=== PATIENT | female | born 2000 | race Two or more races ===

== ENCOUNTER 2024-08-23 22:40 | Emergency (ER) | payer MEDICAID, SELFPAY ==
[2024-08-23 22:41] VITALS: BMI 31.6
[2024-08-23 23:05] VITALS: BP 134/90; PULSE 86; RESP 16; TEMP 37; O2SAT 100
--- NOTE | 2024-08-23 23:30 | PD.EDRME ---
Rapid Medical Screening Exam RME Arrival date/time: 08/23/24 22:40 Chief Complaint: Chest Pain Time Seen by Provider: 08/23/24 22:45 Vital signs: Vital Signs Temperature 98.6 F 08/23/24 23:05 Pulse Rate 86 08/23/24 23:05 Respiratory Rate 16 08/23/24 23:05 Blood Pressure 134/90 H 08/23/24 23:05 Pulse Oximetry (%) 100 08/23/24 23:05 Oxygen Delivery Method Room Air 08/23/24 23:05 Vital signs reviewed by provider: Yes RME Narrative: 23-year-old female presents with a 1 day history of left anterior chest pain that radiates to her left shoulder and arm. She has had this pain before and was seen by a registered nurse behavioral health. She was told she had a heart murmur but no actual diagnosis. She states today the pain has been coming and going. It comes on at rest it is described as a pressure, she describes it as an 8/10 at its worst and currently 7/10. It lasts a few minutes and then goes away on its own. There are no exacerbating or alleviating factors. She has no associated symptoms of shortness of breath, nausea or vomiting, abdominal pain, lightheadedness. I have greeted and performed a focused initial assessment of this patient. A comprehensive ED assessment and evaluation of the patient, analysis of all test results, and completion of the medical decision making process will be conducted by additional ED providers. EKG and chest x-ray ordered and pending.
--- NOTE | 2024-08-23 23:33 | EKG_ITS ---
[facility] Test Date: 2024-08-23 Pat Name: NAIMA FISHER Department: Room: - Gender: Female Creative Strategist: : [id number] Requested By: Andria Lopez Order Number: [id number] Reading MD: Andria Lopez Measurements Intervals [place] Rate: 81 P: 50 HI: 153 QRS: 60 QRSD: 93 T: 56 QT: 389 QTc: 453 Interpretive Statements SINUS RHYTHM No previous ECG available for comparison /store/S0/[id number].pdf
--- NOTE | 2024-08-23 23:33 | XR_ITS ---
Examination: PA lateral chest 2 views Technique: Upright PA lateral chest 2 views Exam date and time: August 23, 2024 1143 hrs. Comparison July 17, 2021 Indications: Left anterior chest pain today. Findings: Normal heart size Lungs are clear. The osseous structures are intact Impression: No active disease
[2024-08-24] MEDS: ACETAMINOPHEN w/COD 300-30 TABLET 2 TAB PO (00:32)
[2024-08-24 00:57] LABS: Basophils % (Auto) 0 % (0-2.5); Eosinophils # (Auto) 0.3 Thou/mm3 (0.0-0.5); Eosinophils % (Auto) 3 % (0-10); Hematocrit 39.1 % (36.0-46.0); Hemoglobin 12.9 g/dL (12.0-16.0); Immature Granulocytes % (Auto) 0 % (0-0); Immature Granulocytes Auto 0.03 Thou/mm3 (0.00-0.00); Lymphocytes # (Auto) 2.7 Thou/mm3 (1.0-4.8); Lymphocytes % (Auto) 23 % (10-50); Mean Corpuscular Hemoglobin 26.9 pg (25.0-35.0); Mean Corpuscular Volume 82 fL (80-100); Monocytes # (Auto) 0.9 Thou/mm3 (0.0-0.8); Monocytes % (Auto) 8 % (0-12); Neutrophils # (Auto) 7.5 Thou/mm3 (1.8-7.7); Neutrophils % (Auto) 65 % (37-80); Nucleated Red Blood Cell % 0 /100 WBC (0); Platelet Count 271 Thou/mm3 (140-440); RDW Standard Deviation 43.6 fL (36.4-46.3); White Blood Count 11.5 Thou/mm3 (3.6-11.0)
[2024-08-24 01:11] LABS: D-Dimer < 250 ng/mL (<600)
[2024-08-24 01:29] LABS: B-Type Natriuretic Peptide < 20 pg/mL (0-100)
[2024-08-24 01:48] LABS: Albumin, Serum 4.5 gm/dL (3.5-5.0); Albumin/Globulin Ratio 1.6 (1.2-2.2); Alkaline Phosphatase 47 U/L (46-116); Anion Gap 6 (7-16); Aspartate Amino Transferase 14 U/L (0-34); BUN/Creatinine Ratio 17 Ratio (12-20); Bilirubin,Total 1.8 mg/dL (0.3-1.2); Blood Urea Nitrogen 12 mg/dL (9-23); Calcium 9.4 mg/dL (8.3-10.6); Calcium (Corrected) 9.4 mg/dL (8.5-10.1); Carbon Dioxide 26.6 mMol/L (20.0-31.0); Chloride 106 mMol/L (98-107); Creatinine (Component) 0.7 mg/dL (0.6-1.3); Estimated Creatinine Clearance 121.3 mL/min (>60); Globulin 2.8 gm/dL (2.3-3.5); Glucose 88 mg/dL (74-106); Magnesium 1.8 mg/dL (1.6-2.6); Osmolality,Calculated 276 (275-295); Potassium 3.8 mMol/L (3.4-5.1); Sodium 139 mMol/L (136-145); Total Protein 7.3 gm/dL (5.7-8.2); Troponin I < 0.002 ng/mL (0.0-0.045); eGFR > 60 See Note
[2024-08-24 01:51] LABS: Free T4 (Free Thyroxine) 1.17 ng/dL (0.89-1.76); Thyroid Stimulating Hormone 0.97 uIU/mL (0.55-4.78)
[2024-08-24 01:57] LABS: Alanine Aminotransferase < 7 U/L (10-49)
--- NOTE | 2024-08-24 02:12 | PD.EDCHEST ---
ED Chest Pain RME/HPI General Chief Complaint: Chest Pain Stated Complaint: CHEST PAIN Time Seen by Provider: 08/23/24 22:45 Arrival date/time: 08/23/24 22:40 RME / HPI RME / HPI narrative: 23-year-old female presents with a 1 day history of left anterior chest pain that radiates to her left shoulder and arm. She has had this pain before and was seen by a watch manufacturing supervisor. She was told she had a heart murmur but no actual diagnosis. She states today the pain has been coming and going. It comes on at rest it is described as a pressure, she describes it as an 8/10 at its worst and currently 7/10. It lasts a few minutes and then goes away on its own. There are no exacerbating or alleviating factors. She has no associated symptoms of shortness of breath, nausea or vomiting, abdominal pain, lightheadedness. I have greeted and performed a focused initial assessment of this patient. A comprehensive ED assessment and evaluation of the patient, analysis of all test results, and completion of the medical decision making process will be conducted by additional ED providers. EKG and chest x-ray ordered and pending. This section includes all my notes and documentations, including HPI, PE, and ED course. Randy Candelario MD HPI: 23-year-old female presents with a 1 day history of left anterior chest pain that radiates to her left shoulder and arm. She has had this pain before and was seen by a watch manufacturing supervisor. She was told she had a heart murmur but no actual diagnosis. She states today the pain has been coming and going. It comes on at rest it is described as a pressure, she describes it as an 8/10 at its worst and currently 7/10. It lasts a few minutes and then goes away on its own. There are no exacerbating or alleviating factors. She has no associated symptoms of shortness of breath, nausea or vomiting, abdominal pain, lightheadedness. ROS: All negative except as documented in HPI. Physical Exam: General: Alert and oriented. Appears anxious. Eyes: Conjunctivae and lids clear. ENT: No nasal congestion. Neck: Supple. Heart: RRR. Lungs: No respiratory distress. Good air movement. No rhonchi, wheezing, rales. Chest: Palpation of left sided anterior chest induces tenderness. Abdomen: Soft and nontender. Back: No CVA tenderness. Skin: Warm and dry. Neuro: Alert and oriented X 3. I reviewed all diagnostic test results. My interpretation of the EKG is sinus rhythm with no ST-T changes. My interpretation of the chest x-ray is NAD. Blood tests unremarkable. At this point, diagnoses include musculoskeletal chest pain or chest pain due to anxiety. Treatment here included two Tylenol #3. Significant improvement noted. Prescribed Xanax as a trial and recommended more outpatient cardiac workup. Based on my best medical judgment, made decision no further evaluation or treatment indicated at this time. Patient understands and agrees to the discharge instructions customized and printed, see below. Discharge instructions from Dr. Candelario: 1. After extensive evaluation, there is no life-threatening condition.? Such as heart attack or pulmonary embolism (blood clots in your lungs) or pneumothorax (collapsed lung). 2. Your symptoms may be due to underlying stress or anxiety or nerves.? This is fairly common. 3. Take Xanax as needed.? Whether this helps or not will be valuable information to your private doctors. 4. See a private doctor on 08/25/2024. To make sure there is no serious underlying heart condition, ask to help you get more tests for your heart that cannot be done here in the ER.? Such as Holter Monitor (cardiac monitoring at home from a day to even a month), heart stress test (on treadmill or with medication), echocardiogram (imaging of your heart structures), heart catherization (checking for blockages in your heart arteries), and a referral to see a Manufacturing Engineer. 5. Seek immediate medical care with worsening or with any concerns.?? Randy Candelario MD Related Data Home Medications ?Medication ?Instructions ?Recorded ?Confirmed vit no.95-ferrous 1 tab PO QDAY 11/18/20 07/01/23 fumarate 28 mg-folic acid 800 mcg tablet () ferrous gluconate 324 mg (38 mg 324 mg PO DAILY 06/29/23 07/01/23 iron) tablet Previous Rx's ?Medication ?Instructions ?Recorded docusate sodium 100 mg capsule 100 mg PO BID #60 caps 07/16/23 (Colace) ibuprofen 800 mg tablet 800 mg PO Q6H PRN pain #120 tabs 07/16/23 lanolin 50 % topical ointment 1 applic topical TID PRN skin 07/16/23 irritation #15 tubes alprazolam 0.5 mg tablet (Xanax) 0.5 mg PO BID PRN anxiety #20 tabs 08/24/24 Allergies Allergy/AdvReac Type Severity Reaction Status Date / Time Sulfa (Sulfonamide Allergy Severe Rash Verified 07/14/23 23:55 Antibiotics) Course Quality Measures none Orders Category Date Time Status EKG (ED ONLY) *Do not use* NOW Care 08/23/24 23:34 Completed EKG (ED Only) Stat Exams 08/23/24 23:33 Draft XR chest 2V Stat Exams 08/23/24 23:33 Completed BNP [B-Type Natriuretic Peptide] Stat Lab 08/24/24 00:15 Completed CBC Stat Lab 08/24/24 00:15 Completed CMP [Comprehensive Metabolic Panel] Stat Lab 08/24/24 00:15 Completed D-Dimer Stat Lab 08/24/24 00:15 Completed Free T4 (Free Thyroxine) Stat Lab 08/24/24 00:15 Completed Magnesium Stat Lab 08/24/24 00:15 Completed TSH [Thyroid Stimulating Hormone] Stat Lab 08/24/24 00:15 Completed Troponin I Stat Lab 08/24/24 00:15 Completed ACETAMINOPHEN w/COD 300-30 [Tylenol w/Cod #3] Med 08/24/24 00:13 Discontinued 2 tab PO X1 ONE Vital Signs Vital signs: Vital Signs Temperature 98.6 F 08/23/24 23:05 Pulse Rate 86 08/23/24 23:05 Respiratory Rate 16 08/23/24 23:05 Blood Pressure 134/90 H 08/23/24 23:05 Pulse Oximetry (%) 100 08/23/24 23:05 Oxygen Delivery Method Room Air 08/23/24 23:05 Chest Pain Patient data External records reviewed:: [facility] previous records Clinical information provided by:: patient Social determinants that could affect healthcare access:: none Patient has the following chronic illnesses:: heart murmur How is presenting disease/condition affected by chronic disease/condition?: uneffected by Evaluation data The following diagnostics were reviewed and interpreted by me:: lab results, radiology exam(s) and EKG tracing(s) Lab and/or radiology exams considered but not ordered:: none Interpretation Summary: musculoskeletal chest pain or chest pain due to anxiety Medications / Prescriptions Medications or Prescriptions considered but not ordered:: none Medication administrations:: Medication Administration History Discontinued Medications Acetaminophen/Codeine Phosphate (Acetaminophen W/Cod 300-30 Tablet) 2 tab PO X1 ONE Stop: 08/24/24 00:14 Last Admin: 08/24/24 00:32 Dose: 2 tab Documented By: STEWART Tylenol #3 Consultations Consultation(s) initiated? (list below): No Diagnosis Chest Pain Differential Diagnosis: pneumothorax, stable angina, unstable angina pectoris, atypical chest pain, st elevation myocardial infarction and costochondritis Most likely diagnosis given after review of the tests above:: musculoskeletal chest pain or chest pain due to anxiety Admission Indicated Admission indicated?: not indicated Explain why admission is indicated or not indicated:: No indication for admission. Admission Request Was there a request for admission?: No Disposition Plan Disposition Plan: Discharge Discharge Attestation Discharge Attestation: The patient and all family members were given an opportunity to ask questions and understood the discharge instructions. Discharge instructions specifically effects, indications for sooner follow up or return to the emergency department, and the expected course of current diagnosis. Patient condition: Stable Discharge Plan Plan Patient Disposition: HOME (Self Care) Prescriptions/Referrals Prescriptions/Med Rec: New alprazolam [Xanax] 0.5 mg tablet 0.5 mg PO BID PRN (Reason: anxiety) Qty: 20 0RF No Action PNV cmb#95-ferrous fumarate-FA [] 28 mg iron- 800 mcg tablet 1 tab PO QDAY ferrous gluconate 324 mg (38 mg iron) tablet 324 mg PO DAILY Patient Comments: TAKE 1 TABLET BY MOUTH TWICE DAILY ibuprofen 800 mg tablet 800 mg PO Q6H MDD 4 PRN (Reason: pain) Qty: 120 0RF docusate sodium [Colace] 100 mg capsule 100 mg PO BID Qty: 60 0RF lanolin 50 % ointment 1 applic topical TID PRN (Reason: skin irritation) Qty: 15 0RF Referrals: Bin Noguera MD [Primary Care Provider] - In 1 week Problem List Clinical Impression: Chest pain Patient/Caregiver Discharge Instructions Discharge Activity: activity as tolerated Education Materials: ED Anxiety Reaction, ED Chest Pain, Uncertain Cause, ED Panic Attack Additional Instructions: Discharge instructions from Dr. Candelario: 1. After extensive evaluation, there is no life-threatening condition.? Such as heart attack or pulmonary embolism (blood clots in your lungs) or pneumothorax (collapsed lung). 2. Your symptoms may be due to underlying stress or anxiety or nerves.? This is fairly common. 3. Take Xanax as needed.? Whether this helps or not will be valuable information to your private doctors. 4. See a private doctor on 08/25/2024. To make sure there is no serious underlying heart condition, ask to help you get more tests for your heart that cannot be done here in the ER.? Such as Holter Monitor (cardiac monitoring at home from a day to even a month), heart stress test (on treadmill or with medication), echocardiogram (imaging of your heart structures), heart catherization (checking for blockages in your heart arteries), and a referral to see a Manufacturing Engineer. 5. Seek immediate medical care with worsening or with any concerns.?? Print Language: Chinese Stand Alone Forms: Emma Award Info., Patient Portal Info Letter
[2024-08-24 02:16] VITALS: RESP 16
== END 2024-08-24 02:17 | disposition home or self-care (01) ==
PROVIDERS: Emergency Provider Emergency Medicine; PCP Family Medicine
DX: R07.9 Chest pain, unspecified (principal)
CPT/HCPCS: 36415; 71046; 80053; 83735; 83880; 84439; 84443; 84484; 85025; 85379; 93005; 99283; A9270

== ENCOUNTER 2025-02-02 10:27 | Emergency (ER) | payer MEDICAID, SELFPAY ==
--- NOTE | 2025-02-02 10:53 | XR_ITS ---
Examination: Complete OB ultrasound, less than 14 weeks, transabdominal Date and time of exam: February 02, 2025, 1143 hours INDICATIONS: Lower back pain pelvic pain onset today Technique: Obstetrical ultrasound images less than 14 weeks performed via transabdominal imaging Findings: A normal shaped single intrauterine gestation is present in the uterus. CRL 3.8 cm corresponds to 10 weeks 5 day gestational age Cardiac motion 160 BPM Ultrasonographic survey of visible and placental structures unremarkable. Amniotic fluid volume appears appropriate for this estimated gestational age. Right ovary 4.7 cm arterial flow 13 mm corpus luteum cyst Left ovary 4.0 cm arterial flow IMPRESSION: Viable intrauterine gestation 10 weeks 5 days, no subchorionic hemorrhage.
--- NOTE | 2025-02-02 10:53 | PD.EDBACK ---
ED Back Injury Pain RME/HPI General Chief Complaint: Abdominal Pain Stated Complaint: ABD/BACK PAIN 8/10, PREG 8 WKS Time Seen by Provider: 02/02/25 10:54 Source: patient Arrival date/time: 02/02/25 10:27 24-year-old female with no known medical history presents to the emergency room with a chief complaint of lower lumbar back pain and bilateral lower abdominal pain x 1 day. Patient is currently 8 weeks . Mode of arrival: ambulatory Limitations: no limitations Related Data Home Medications ?Medication ?Instructions ?Recorded ?Confirmed vit no.95-ferrous 1 tab PO QDAY 11/18/20 07/01/23 fumarate 28 mg-folic acid 800 mcg tablet () ferrous gluconate 324 mg (38 mg 324 mg PO DAILY 06/29/23 07/01/23 iron) tablet Previous Rx's ?Medication ?Instructions ?Recorded docusate sodium 100 mg capsule 100 mg PO BID #60 caps 07/16/23 (Colace) ibuprofen 800 mg tablet 800 mg PO Q6H PRN pain #120 tabs 07/16/23 lanolin 50 % topical ointment 1 applic topical TID PRN skin 07/16/23 irritation #15 tubes alprazolam 0.5 mg tablet (Xanax) 0.5 mg PO BID PRN anxiety #20 tabs 08/24/24 Allergies Allergy/AdvReac Type Severity Reaction Status Date / Time Sulfa (Sulfonamide Allergy Severe Rash Verified 02/02/25 10:30 Antibiotics) ED Exam General Limitations: Present no limitations Course Quality Measures none Orders Category Date Time Status US OB <= 14 weeks fetus Stat Exams 02/02/25 10:53 Completed ABO/RH Type Stat Lab 02/02/25 11:06 Completed Beta HCG,Quantitative Stat Lab 02/02/25 11:06 Completed CBC Stat Lab 02/02/25 11:06 Completed CMP [Comprehensive Metabolic Panel] Stat Lab 02/02/25 11:06 Completed UA [Urinalysis] Stat Lab 02/02/25 11:05 Completed Vital Signs Vital signs: Vital Signs Temperature 98.2 F 02/02/25 10:55 Pulse Rate 77 02/02/25 10:55 Respiratory Rate 16 02/02/25 10:55 Blood Pressure 122/84 02/02/25 10:55 Pulse Oximetry (%) 100 02/02/25 10:55 Oxygen Delivery Method Room Air 02/02/25 10:55 Back Pain / Injury MDM Narrative MDM Narrative:: 24-year-old female with no known medical history presents to the emergency room with a chief complaint of lower lumbar back pain and bilateral lower abdominal pain x 1 day. Patient is currently 8 weeks . Patient is hemodynamically stable and in no apparent distress Physical examination shows some lower abdominal pain bilaterally. Patient has active bowel sounds. Patient states she is currently 8 weeks and has a history of a subchorionic bleed. At this point the patient denies any vaginal bleeding or any dysuria. Ultrasound OB was completed and shows a viable intrauterine gestation at 10 weeks and 5 days. Cardiac motion is 160 bpm hCG levels are at 66,460. The subchorionic hemorrhage is no longer there the patient has a ovarian cyst to the right side. Patient was discharged and educated to follow-up with primary care provider in the next 24 to 48 hours and return to the emergency room for any evidence of worsening signs or symptoms Patient data External records reviewed:: [facility] previous records Clinical information provided by:: patient Social determinants that could affect healthcare access:: none Patient has the following chronic illnesses:: No chronic illness How is presenting disease/condition affected by chronic disease/condition?: no chronic disease Evaluation data The following diagnostics were reviewed and interpreted by me:: lab results and radiology exam(s) Lab and/or radiology exams considered but not ordered:: Labs and radiology exams considered and ordered Interpretation Summary: Ultrasound OB-Findings: A normal shaped single intrauterine gestation is present in the uterus. CRL 3.8 cm corresponds to 10 weeks 5 day gestational age Cardiac motion 160 BPM Ultrasonographic survey of visible and placental structures unremarkable. Amniotic fluid volume appears appropriate for this estimated gestational age. Right ovary 4.7 cm arterial flow 13 mm corpus luteum cyst Left ovary 4.0 cm arterial flow IMPRESSION: Viable intrauterine gestation 10 weeks 5 days, no subchorionic hemorrhage. Medications / Prescriptions Medications or Prescriptions considered but not ordered:: No medication given Medication administrations:: No medication given Consultations Consultation(s) initiated? (list below): No Diagnosis Differential diagnosis back pain/injury: other (Threatened /abdominal cramping affecting ) Most likely diagnosis given after review of the tests above:: Abdominal cramping affecting Admission Indicated Admission indicated?: not indicated Admission Request Was there a request for admission?: No Disposition Plan Disposition Plan: Discharge Discharge Attestation Discharge Attestation: The patient and all family members were given an opportunity to ask questions and understood the discharge instructions. Discharge instructions specifically effects, indications for sooner follow up or return to the emergency department, and the expected course of current diagnosis. Patient condition: Stable Discharge Plan Plan Patient Disposition: HOME (Self Care) Discharge Disposition comment: Stable Prescriptions/Referrals Prescriptions/Med Rec: No Action PNV no.95-ferrous fumarate-FA [] 28 mg iron- 800 mcg tablet 1 tab PO QDAY ferrous gluconate 324 mg (38 mg iron) tablet 324 mg PO DAILY Patient Comments: TAKE 1 TABLET BY MOUTH TWICE DAILY ibuprofen 800 mg tablet 800 mg PO Q6H MDD 4 PRN (Reason: pain) Qty: 120 0RF docusate sodium [Colace] 100 mg capsule 100 mg PO BID Qty: 60 0RF lanolin 50 % ointment 1 applic topical TID PRN (Reason: skin irritation) Qty: 15 0RF alprazolam [Xanax] 0.5 mg tablet 0.5 mg PO BID PRN (Reason: anxiety) Qty: 20 0RF Referrals: Bin Noguera MD [Primary Care Provider, Family Practice] - In 1 week Problem List Clinical Impression: Abdominal cramping affecting Patient/Caregiver Discharge Instructions Education Materials: ED Abdominal Pain Unkn Cause Fem Additional Instructions: Please follow-up with your RECEIVING TEAM MEMBER in the next 24 to 48 hours. You are currently 10 weeks and 5 days . Her heart tones are at 160 bpm. Your hCG levels are 66,421. There is no more evidence of any subchorionic hemorrhage. You still have your 13 mm cyst to your right ovary. For any evidence of worsening signs or symptoms return to the emergency room immediately Print Language: Irish Stand Alone Forms: Emma Award Info., Work/School Release, Patient Portal Info Letter PA/CALF SKINNER Supervising Physician PA/CALF SKINNER Supervising Physician: Dr. Valdez
[2025-02-02 10:55] VITALS: BP 122/84; PULSE 77; RESP 16; TEMP 36.8; O2SAT 100; BMI 31.9
[2025-02-02 11:22] LABS: Collection Type, Urine Clean Catch
[2025-02-02 11:29] LABS: Bilirubin,Urine Negative (Negative); Blood,Urine Negative (Negative); Clarity,Urine Clear (Clear/Hazy); Color,Urine Yellow (Lt Yel-Yel); Glucose, Urine Negative (Negative); Ketones,Urine Negative (Negative); Leukocyte Esterase,Urine Negative (Negative); Nitrite,Urine Negative (Negative); PH,Urine 6.5 (5.0-7.0); Protein,Urine Trace (Neg - Trace); RBC,Urine 3 /hpf (0-3); Specific Gravity,Urine 1.033 (1.001-1.035); Squamous Epithelial Cell,Urine 2 /hpf (0-5); Urobilinogen,Urine 2.0 mg/dL (0.0-1.0); WBC,Urine 1 /hpf (0-5)
[2025-02-02 11:30] LABS: Basophils # (Auto) 0.0 Thou/mm3 (0.0-0.2); Basophils % (Auto) 0 % (0-2.5); Eosinophils # (Auto) 0.5 Thou/mm3 (0.0-0.5); Eosinophils % (Auto) 4 % (0-10); Hematocrit 35.7 % (36.0-46.0); Hemoglobin 11.6 g/dL (12.0-16.0); Immature Granulocytes Auto 0.06 Thou/mm3 (0.00-0.00); Lymphocytes # (Auto) 2.0 Thou/mm3 (1.0-4.8); Lymphocytes % (Auto) 19 % (10-50); Mean Corpuscular HGB Conc 32.5 g/dl (31.0-37.0); Mean Corpuscular Hemoglobin 28.0 pg (25.0-35.0); Mean Corpuscular Volume 86 fL (80-100); Monocytes # (Auto) 0.8 Thou/mm3 (0.0-0.8); Monocytes % (Auto) 8 % (0-12); Neutrophils # (Auto) 7.1 Thou/mm3 (1.8-7.7); Neutrophils % (Auto) 68 % (37-80); Nucleated Red Blood Cell # 0.00 Thou/mm3 (0.00-0.00); Nucleated Red Blood Cell % 0 /100 WBC (0); Platelet Count 258 Thou/mm3 (140-440); RDW Standard Deviation 43.8 fL (36.4-46.3); Red Blood Count 4.14 Miln/mm3 (4.00-5.20); White Blood Count 10.4 Thou/mm3 (3.6-11.0)
[2025-02-02 12:39] LABS: Alanine Aminotransferase < 7 U/L (10-49); Albumin, Serum 4.2 gm/dL (3.5-5.0); Albumin/Globulin Ratio 1.7 (1.2-2.2); Alkaline Phosphatase 45 U/L (46-116); Anion Gap 8 (7-16); Aspartate Amino Transferase 11 U/L (0-34); BUN/Creatinine Ratio 14 Ratio (12-20); Bilirubin,Total 0.7 mg/dL (0.3-1.2); Blood Urea Nitrogen 7 mg/dL (9-23); Calcium 9.3 mg/dL (8.3-10.6); Calcium (Corrected) 9.3 mg/dL (8.5-10.1); Carbon Dioxide 23.6 mMol/L (20.0-31.0); Chloride 105 mMol/L (98-107); Creatinine (Component) 0.5 mg/dL (0.6-1.3); Estimated Creatinine Clearance 169.1 mL/min (>60); Globulin 2.5 gm/dL (2.3-3.5); Glucose 84 mg/dL (74-106); Osmolality,Calculated 270 (275-295); Potassium 3.7 mMol/L (3.4-5.1); Sodium 137 mMol/L (136-145); Total Protein 6.7 gm/dL (5.7-8.2); eGFR > 60 See Note
== END 2025-02-02 13:45 | disposition home or self-care (01) ==
PROVIDERS: Nurse Practitioner Family; Emergency Provider Family Medicine; PCP Family Medicine
DX: O34.81 Maternal care for other abnormalities of pelvic organs, first trimester (principal); N83.11 Corpus luteum cyst of right ovary; O26.891 Other specified pregnancy related conditions, first trimester; R10.32 Left lower quadrant pain; R10.31 Right lower quadrant pain; M54.50 Low back pain, unspecified; Z3A.10 10 weeks gestation of pregnancy
CPT/HCPCS: 36415; 76801; 80053; 81001; 84702; 85025; 86900; 86901; 99283

== ENCOUNTER 2025-02-15 14:10 | Outpatient (AMB) | payer MEDICAID, SELFPAY ==
[2025-02-15 14:37] VITALS: BP 117/76; PULSE 85; RESP 16; TEMP 36.4; O2SAT 100; BMI 32.6
--- NOTE | 2025-02-15 14:37 | OBCLNT_ITS ---
Vital Signs 02/15/25 14:37 Height 1.6 m Height Method Stated Weight 83.574 kg Weight Measurement Method Standing Scale BMI 32.6 BP 117/76 Blood Pressure Source Automatic Cuff Blood Pressure Location Left Upper Arm Position Sitting Respiration 16 Pulse 85 Pulse Source Monitor Temp 97.5 F Temp Source Oral Pulse Oximetry (%) 100 Oxygen Delivery Method Room Air Allergies/Home Meds Allergies & Medications Allergies Sulfa (Sulfonamide Antibiotics) Allergy (Severe, Verified 02/15/25 14:38) Rash Medication Reconciliation vit no.95-ferrous fumarate 28 mg-folic acid 800 mcg tablet () 1 tab PO QDAY 11/18/20 [History Confirmed 02/15/25] ferrous gluconate 324 mg (38 mg iron) tablet 324 mg PO DAILY 06/29/23 [History Confirmed 02/15/25] ondansetron HCl 4 mg tablet 4 mg PO Q8H PRN nausea and vomiting #30 tabs 02/15/25 [Rx] Intake Visit Data Collection New Patient or Established: Established Patient (seen at [facility] within 3 years) Reason for Visit:: INITIAL CARE Seen by Clinical Staff ONLY (RN/MA): No Mathematical Scientist Required: No Do You Feel Safe at Home: Yes Authorities Contacted: N/A PCP or OBGYN visit in last 3 months: Yes Hx Now: Yes Are you currently on any form of Control: No Last menstrual period: 11/17/24 Pain Present Currently: No Pain Scale Used: Bradley-Santos/Numerical Pain scale:: 0 Smoking Status Smoking Status: Never smoker Questionnaires Covid-19 Vaccine Questionnaire Has patient been vacinated for Covid-19 Have you been vacinated for Covid-19: Yes PHQ-9 PHQ-2 Over the last 2 weeks, how often have you been bothered by any of the following problems? 1. Little interest or pleasure in doing things: not at all 2. Feeling down, depressed, or hopeless: not at all Total score: 0 PHQ-9 3. Trouble falling or staying asleep, or sleeping too much: Not at all 4. Feeling tired or having little energy: Not at all 5. Poor appetite or overeating: Not at all 6. Feeling bad about yourself - or that you are a failure or have let yourself or your family down: Not at all 7. Trouble concentrating on things, such as reading the newspaper or watching television: Not at all 8. Moving or speaking so slowly that other people could have noticed? - Or the opposite - being so fidgety or restless that you have been moving around a lot more than usual: not at all 9. Thoughts that you would be better off or of hurting yourself in some way: Not at all Total score: 0 Source: Developed by Drs. Anibal Mcnamara, Ruby Liao, James Hernandez and colleagues, with an educational albert from [employer]. Depression screen completed yes Social History Living Situation History Marital Status: Lives With: Family Housing: House Tobacco History Smoking Status: Never smoker Second Hand Smoke Exposure: No Alcohol History Alcohol Intake: Never Domestic Abuse History Do You Feel Safe at Home: Yes History of Present Illness HPI Narrative 24-year-old 3 para 2 for OBI. Patient had her first visit at [facility] for care. Labs were drawn. She had a sono but we have no record of that. No dates. By her sono she is due September 02, 2024. She thinks maybe last period was November 27, 2024. Denies social habits. Denies surgery. Denies chronic illness. Patient is very happy about the . She denies any bleeding, leaking or contractions. Baby is not moving yet COMMUNICATIONS LEAD: Past Medical History Past Medical History: No Hx Neurological Disorders, No Hx Breast Cancer, No Hx Cardiac Disorders, No Hx Cancer, No Hx Blood Disorders, No Hx Anemia, No Hx Gastrointestinal Disorders, No Hx Renal Disease, No Hx Diabetes Mellitus Type 1 and No Hx Diabetes Mellitus Type 2 OB Initial Visit OB Flowsheet OB Flowsheet Initial Weight: Not Recorded Date -?-?-?-?-?-?-?-?-?-?-?-?- EGA Weight BP Alb Glu CTX Pres Fundal ht FHR Mov Dilation Station Effacement Hx Notes Visit Note 02/15/25 -?-?-?-?-?-?-?-?-?-?-?-?- 11w 3d 83.574 kg 117/76 absent unknown 11 125 absent 24-year-old 3 para 2 for OBI. Patient brought her lab results with her. She was seen at [facility]. Denies any SAB complaints. Increased nausea she likes the medicine for that she has no other OB complaints Reviewed labs with patient. Schedule anatomy scan with Dr. Guan. Discussed SAB precautions. Comfort measures for nausea. Zofran 4 mg every 8. And today we did NIPT and carrier screens. Return in 4 weeks OB check Menstrual History Menstrual reliability: definite Flow: normal Menstrual regularity: regular Monthly: Yes Age at menarche: 13 On control pills at conception: No Associated symptoms (LMP): Reports nausea, vomiting, fatigue and breast tenderness OB History : 3 Para: 2 # of Living Children: 2 Delivery History 1st : Child's name: MILAD date: 11/20/20 sex: female Gestational age at delivery (weeks): 41 Delivery type: vaginal weight (lbs): 5261.671 g Delivery complications: NONE History of depression before or after : No 2nd : Child's name: APOLINAR date: 07/16/23 sex: female Gestational age at delivery (weeks): 41 Delivery type: vaginal Delivery complications: NONE History of depression before or after : No Infection History & Risk Evaluation History of STDs: none Genetic Screening & History Genetic Screening/Teratology Counseling - Includes patient, baby's father, or anyone in either family with: 1. Patient's age 35 years or older as of estimated date of delivery: No 2. Thalassemia (Polish, Korean, Mediterranean, or Background); MCV less than 80: No 3. Neural Tube Defect (Meningomyelocele, Spina Bifida, or Anencephaly): No 4. Congenital Heart Defect: No 5. Down Syndrome: No 6. Raul-Sachs (Ashkenazi Restorationist, Cajun, Macedonian American): No 7. Anna Disease (Ashkenazi Restorationist): No 8. Familial Dysautonomia (Ashkenazi Restorationist): No 9. Sickle Cell Disease or Trait (): No 10. Hemophilia or other blood disorders: No 11. Muscular Dystrophy: No 12. Cystic Fibrosis: No 13. Hayden's Chorea: No 14. Mental Retardation/Autism: No 15. Other inherited genetic or chromosomal disorder: No 16. Maternal Metabolic Disorder (EG,TYPE 1 Diabetes, PKU): No 17. Patient or baby's father had a child with defects not listed above: No 18. Recurrent loss or a stillbirth: No 19. Medications (including supplements, vitamins, herbs or otc drugs)/illicit/recreational drugs/alcohol since last menstrual period: No 20. Any other: No Infection History 1. Live with someone with TB or exposed to TB: No 2. Rash or viral illness since last menstrual period: No 3. Hepatitis B,C: No Other (see comments) Source: [employer] Review of Systems Review of Systems Systems Reviewed: All systems reviewed, normal except as documented Constitutional Constitutional: Reports fatigue Gastrointestinal Gastrointestinal: Reports nausea and Reports vomiting Endocrine Endocrine: Reports fatigue Exam General Limitations: no limitations General Appearance: alert, in no apparent distress, comfortable, cooperative, healthy appearing, well developed and well groomed Head Head exam: atraumatic, normocephalic and normal inspection Neck Neck exam: Present normal inspection, full ROM and trachea midline Chest Chest inspection: Present normal inspection and symmetric chest wall rise Resp Respiratory exam: Present normal lung sounds bilaterally Card Cardiovascular exam: Present regular rate, normal rhythm and normal heart sounds Abdominal Abdominal exam: Present soft and normal bowel sounds Psych Psychiatric exam: Present normal affect and normal mood Office Procedures OBC Clinic LOC & Office Proc's Nursing/Assessment Patient Status: Established Patient OB Clinic Nursing Assessment: Medication Reconciliation, Update PMH in EMR and Vital Signs OB Clinic Coordination of Care: Complex Care and Chronic Disease 1-5, Consent,records obtained, informed consent, Education Simp Pt/Fam, 1 Ins Authorization, Lab and Imaging orders, Results/Orders obtained and Staff clarify orders Special Needs: Heart tones Established Patient Charge Established Patient Point Assignment: 150 Established Patient Point Charge: EP Level 4 (120-155) Assessment & Plan Diagnosis / Problem List (1) Encounter for supervision of high risk in first trimester, antepartum: Status: Acute Plan Zofran 4 mg Q8 as needed for nausea. Comfort measures for nausea. Schedule with Dr. Guan for anatomy scan. Discussed SAB precautions. NIPT and carrier screens today. Reviewed OB panel with patient. Return in 4 weeks OB check Additional Plan Follow Up: 4 Weeks (obc)
== END 2025-02-15 14:48 | disposition home or self-care (01) ==
LOC: HODSOBC 14:10
PROVIDERS: PCP Family Medicine; Referring Provider Family Medicine; Supervising Provider Advanced Practice Midwife; Visit Provider Advanced Practice Midwife
DX: O09.91 Supervision of high risk pregnancy, unspecified, first trimester (principal); Z3A.11 11 weeks gestation of pregnancy; Z88.2 Allergy status to sulfonamides
CPT/HCPCS: 99214; G0463

== ENCOUNTER 2025-03-15 15:24 | Outpatient (AMB) | payer MEDICAID, SELFPAY ==
[2025-03-15 15:27] VITALS: BP 116/76; PULSE 88; RESP 16; TEMP 36.1; O2SAT 98; BMI 30.9
--- NOTE | 2025-03-15 15:27 | AMB.OBVISIT ---
Vital Signs 03/15/25 15:27 Height 1.65 m Height Method Stated Weight 84.028 kg Weight Measurement Method Standing Scale BMI 30.9 BP 116/76 Blood Pressure Source Automatic Cuff Blood Pressure Location Left Upper Arm Position Sitting Respiration 16 Pulse 88 Pulse Source Monitor Temp 97.0 F Temp Source Oral Pulse Oximetry (%) 98 Oxygen Delivery Method Room Air Allergies/Home Meds Allergies & Medications Allergies Sulfa (Sulfonamide Antibiotics) Allergy (Severe, Verified 03/15/25 15:33) Rash Medication Reconciliation vit no.95-ferrous fumarate 28 mg-folic acid 800 mcg tablet () 1 tab PO QDAY 11/18/20 [History Confirmed 03/15/25] ferrous gluconate 324 mg (38 mg iron) tablet 324 mg PO DAILY 06/29/23 [History Confirmed 03/15/25] ondansetron HCl 4 mg tablet 4 mg PO Q8H PRN nausea and vomiting #30 tabs 02/15/25 [Rx Confirmed 03/15/25] Intake Visit Data Collection New Patient or Established: Established Patient (seen at [facility] within 3 years) Reason for Visit:: CARE Seen by Clinical Staff ONLY (RN/MA): No Car Construction Superintendent Required: No Do You Feel Safe at Home: Yes Authorities Contacted: N/A PCP or OBGYN visit in last 3 months: Yes Hx Now: Yes Are you currently on any form of Control: No Pain Present Currently: No Pain Scale Used: Bradley-Santos/Numerical Pain scale:: 0 Smoking Status Smoking Status: Never smoker Immunizations Flu Vaccine in the Last 12 Months: Yes Flu Vaccine Exclusion Criteria: Already Received Questionnaires Covid-19 Vaccine Questionnaire Has patient been vacinated for Covid-19 Have you been vacinated for Covid-19: Yes PHQ-9 PHQ-2 Over the last 2 weeks, how often have you been bothered by any of the following problems? 1. Little interest or pleasure in doing things: not at all 2. Feeling down, depressed, or hopeless: not at all Total score: 0 PHQ-9 3. Trouble falling or staying asleep, or sleeping too much: Not at all 4. Feeling tired or having little energy: Not at all 5. Poor appetite or overeating: Not at all 6. Feeling bad about yourself - or that you are a failure or have let yourself or your family down: Not at all 7. Trouble concentrating on things, such as reading the newspaper or watching television: Not at all 8. Moving or speaking so slowly that other people could have noticed? - Or the opposite - being so fidgety or restless that you have been moving around a lot more than usual: not at all 9. Thoughts that you would be better off or of hurting yourself in some way: Not at all Total score: 0 Source: Developed by Drs. Anibal Mcnamara, Ruby Liao, James Hernandez and colleagues, with an educational albert from [employer]. Depression screen completed yes Social History Living Situation History Lives With: Family Housing: House Tobacco History Smoking Status: Never smoker Second Hand Smoke Exposure: No Alcohol History Alcohol Intake: Never Domestic Abuse History Do You Feel Safe at Home: Yes GLOBAL PRODUCT MANAGER: Past Medical History Past Medical History: No Hx Neurological Disorders, No Hx Breast Cancer, No Hx Cardiac Disorders, No Hx Cancer, No Hx Blood Disorders, No Hx Anemia, No Hx Gastrointestinal Disorders, No Hx Renal Disease, No Hx Diabetes Mellitus Type 1 and No Hx Diabetes Mellitus Type 2 Care OB Visit Log OB Flowsheet Initial Weight: Not Recorded Date <del>?</del> EGA Weight BP Alb Glu CTX Pres Fundal ht FHR Mov Dilation Station Effacement Hx Notes Visit Note 02/15/25 <del>?</del> 11w 3d 83.574 kg 117/76 absent unknown 11 125 absent 24-year-old 3 para 2 for OBI. Patient brought her lab results with her. She was seen at [facility]. Denies any SAB complaints. Increased nausea she likes the medicine for that she has no other OB complaints Reviewed labs with patient. Schedule anatomy scan with Dr. Guan. Discussed SAB precautions. Comfort measures for nausea. Zofran 4 mg every 8. And today we did NIPT and carrier screens. Return in 4 weeks OB check 03/15/25 <del>?</del> 15w 3d 84.028 kg 116/76 absent unknown 15 125 absent No OB complaints. Reports light movement sometimes. Denies leaking, bleeding, contractions aFP today. I gave results for NIPT. Appointment for perinatologist is pending. Discussed SAB precautions. Return in 4 weeks OB check YVAN Calculator Estimated Delivery Date Method Current WG Current Estimate 09/03/25 LMP (Uncertain) 15w 3d Notes Visit Date: 03/15/25 Last Updated by: Estrella Luke CNM NIPT-/girl, SMA-,CF- Visit Date: 02/15/25 Last Updated by: Estrella Luke CNM 24 yo . lmp 11/27/24. EDC: 09/02/24. poor dates. OB panel: A+,abs-, rpr;;nr, rub imm, hbsag-,hiv-,hc-, GC/CT-, UT-,UA- Office Procedures OBC Clinic LOC & Office Proc's Nursing/Assessment Patient Status: Established Patient OB Clinic Nursing Assessment: Medication Reconciliation, Update PMH in EMR and Vital Signs OB Clinic Coordination of Care: Complex Care and Chronic Disease 1-5, Consent,records obtained, informed consent, Education Simp Pt/Fam, 1 Ins Authorization, Lab and Imaging orders, Results/Orders obtained and Staff clarify orders Special Needs: Heart tones Established Patient Charge Established Patient Point Assignment: 150 Established Patient Point Charge: EP Level 4 (120-155) Assessment & Plan Diagnosis / Problem List (1) Encounter for supervision of high risk in second trimester, antepartum: Status: Acute Plan Maternal- medicine appointment is pending. aFP today. Discussed NIPT and carrier screens. SAB precautions. Return in 4 weeks OB check Additional Plan Follow Up: 4 Weeks (obc)
== END 2025-03-15 16:02 | disposition home or self-care (01) ==
LOC: HODSOBC 15:24
PROVIDERS: Supervising Provider Advanced Practice Midwife; Visit Provider Advanced Practice Midwife
DX: O09.92 Supervision of high risk pregnancy, unspecified, second trimester (principal); Z3A.15 15 weeks gestation of pregnancy; Z88.2 Allergy status to sulfonamides
CPT/HCPCS: 99214; G0463

== ENCOUNTER 2025-04-13 14:17 | Outpatient (AMB) | payer MEDICAID, SELFPAY ==
[2025-04-13 14:47] VITALS: BP 112/73; PULSE 80; RESP 18; TEMP 36.2; O2SAT 98; BMI 32.2
--- NOTE | 2025-04-13 14:47 | OBCLNT_ITS ---
Vital Signs 04/13/25 14:47 Height 1.65 m Height Method Stated Weight 87.77 kg Weight Measurement Method Standing Scale BMI 32.2 BP 112/73 Blood Pressure Source Automatic Cuff Blood Pressure Location Right Upper Arm Position Sitting Respiration 18 Pulse 80 Pulse Source Monitor Temp 97.1 F Temp Source Temporal Artery Scan Pulse Oximetry (%) 98 Oxygen Delivery Method Room Air Allergies/Home Meds Allergies & Medications Allergies Sulfa (Sulfonamide Antibiotics) Allergy (Severe, Verified 04/13/25 14:49) Rash Medication Reconciliation vit no.95-ferrous fumarate 28 mg-folic acid 800 mcg tablet () 1 tab PO QDAY 11/18/20 [History Confirmed 04/13/25] ferrous gluconate 324 mg (38 mg iron) tablet 324 mg PO DAILY 06/29/23 [History Confirmed 04/13/25] ondansetron HCl 4 mg tablet 4 mg PO Q8H PRN nausea and vomiting #30 tabs 02/15/25 [Rx Confirmed 04/13/25] metronidazole 500 mg tablet 500 mg PO BID 7 days #14 tabs 04/13/25 [Rx] Immunizations Immunizations Flu Vaccine in the Last 12 Months: No Flu Vaccine Exclusion Criteria: No Exclusion Criteria Care OB Visit Log OB Flowsheet Initial Weight: Not Recorded Date -?-?-?-?-?-?-?-?-?-?-?-?- EGA Weight BP Alb Glu CTX Pres Fundal ht FHR Mov Dilation Station Effacement Hx Notes Visit Note 02/15/25 -?-?-?-?-?-?-?-?-?-?-?-?- 11w 3d 83.574 kg 117/76 absent unknown 11 125 absent 24-year-old 3 para 2 for OBI. Patient brought her lab results with her. She was seen at [facility]. Denies any SAB complaints. Increased nausea she likes the medicine for that she has no other OB complaints Reviewed labs with patient. Schedule anatomy scan with Dr. Guan. Discussed SAB precautions. Comfort measures for nausea. Zofran 4 mg every 8. And today we did NIPT and carrier screens. Return in 4 weeks OB check 03/15/25 -?-?-?-?-?-?-?-?-?-?-?-?- 15w 3d 84.028 kg 116/76 absent unknown 15 125 absent No OB complaints. Reports light movement sometimes. Denies leaking, bleeding, contractions aFP today. I gave results for NIPT. Appointment for perinatologist is pending. Discussed SAB precautions. Return in 4 weeks OB check 04/13/25 -?-?-?-?-?-?-?-?-?-?-?-?- 19w 4d 87.77 kg 112/73 absent unknown 19 135 active Complains of a lot of grayish discharge with foul odor. Reports movement. Denies leaking, bleeding, contractions. Perineum was clean. No lesions. Vagina red and positive WHI FF. And grayish discharge Flagyl 500 p.o. twice daily x 7. NuSwab plus today. Follow-up with M mid May for sono. Discussed SAB precautions. Return in 4 weeks OB check YVAN Calculator Estimated Delivery Date Method Current WG Current Estimate 09/03/25 LMP (Uncertain) 19w 4d Notes Visit Date: 04/13/25 Last Updated by: Estrella Luke CNM AFP- Visit Date: 03/15/25 Last Updated by: Estrella Luke CNM NIPT-/girl, SMA-,CF- Visit Date: 02/15/25 Last Updated by: Estrella Luke CNM 24 yo . lmp 11/27/24. EDC: 09/02/24. poor dates. OB panel: A+,abs-, rpr;;nr, rub imm, hbsag-,hiv-,hc-, GC/CT-, UT-,UA- Office Procedures OBC Clinic LOC & Office Proc's Nursing/Assessment Patient Status: Established Patient OB Clinic Nursing Assessment: Medication Reconciliation, Update PMH in EMR and Vital Signs OB Clinic Coordination of Care: Complex Care and Chronic Disease 1-5, Education Complex Pt/Fam, Consent,records obtained, informed consent, Lab and Imaging orders, Results/Orders obtained and Staff clarify orders Special Needs: Heart tones Established Patient Charge Established Patient Point Assignment: 140 Established Patient Point Charge: EP Level 4 (120-155) Assessment & Plan Diagnosis / Problem List (1) Encounter for supervision of high risk in second trimester, antepartum: Status: Acute (2) Vaginitis: Status: Acute Qualifiers: Chronicity: acute Qualified Code(s): N76.0 - Acute vaginitis Plan Flagyl 500 p.o. twice daily x 7. NuSwab today. Patient has her anatomy scan mid May. Discussed labor precautions. And return in 4 weeks OB check Additional Plan Follow Up: 4 Weeks (obc)
== END 2025-04-13 15:25 | disposition home or self-care (01) ==
LOC: HODSOBC 14:17
PROVIDERS: Supervising Provider Advanced Practice Midwife; Visit Provider Advanced Practice Midwife
DX: O09.892 Supervision of other high risk pregnancies, second trimester (principal); O23.592 Infection of other part of genital tract in pregnancy, second trimester; N76.0 Acute vaginitis; Z3A.19 19 weeks gestation of pregnancy; Z88.2 Allergy status to sulfonamides
CPT/HCPCS: 99214; G0463